=== PATIENT | male | born 1940 | race Caucasian/White ===

== ENCOUNTER → 2016-04-18 | Outpatient (CLI) | payer MEDICARE, OTHER | LOC: GMAM 16:59 | PROVIDERS: ATTEND Family Medicine | DX: R94.6 Abnormal results of thyroid function studies (principal); D75.81 Myelofibrosis ==

== ENCOUNTER → 2016-04-30 | Outpatient (CLI) | payer MEDICARE, OTHER | LOC: GMAM 12:07 | PROVIDERS: ATTEND Family Medicine | DX: N18.2 Chronic kidney disease, stage 2 (mild) (principal) ==

== ENCOUNTER → 2016-05-21 | Outpatient (CLI) | payer MEDICARE, OTHER | END | disposition home or self-care (01) | LOC: GMAM 10:43 | PROVIDERS: ATTEND Family Medicine | DX: R94.6 Abnormal results of thyroid function studies (principal) ==

== ENCOUNTER → 2016-06-26 | Outpatient (CLI) | payer MEDICARE, OTHER | END | disposition home or self-care (01) | LOC: GMAM 10:39 | PROVIDERS: ATTEND Family Medicine | DX: E03.9 Hypothyroidism, unspecified (principal); N18.2 Chronic kidney disease, stage 2 (mild); Z12.5 Encounter for screening for malignant neoplasm of prostate | CPT/HCPCS: 83735; 84100; 84439; 84443; G0103 ==

== ENCOUNTER → 2016-09-28 | Outpatient (CLI) | payer MEDICARE, OTHER | END | disposition home or self-care (01) | LOC: GMAM 11:22 | PROVIDERS: ATTEND Family Medicine | DX: N18.2 Chronic kidney disease, stage 2 (mild) (principal) ==

== ENCOUNTER → 2017-02-01 | Outpatient (CLI) | payer MEDICARE, OTHER | END | disposition home or self-care (01) | LOC: GMAM 10:23 | PROVIDERS: ATTEND Family Medicine | DX: E03.9 Hypothyroidism, unspecified (principal); Z12.5 Encounter for screening for malignant neoplasm of prostate | CPT/HCPCS: 84439; 84443; G0103 ==

== ENCOUNTER → 2017-02-05 | Outpatient (CLI) | payer MEDICARE, OTHER | LOC: GMAM 16:37 | PROVIDERS: ATTEND Family Medicine | DX: M25.50 Pain in unspecified joint (principal) ==

== ENCOUNTER → 2017-05-06 | Outpatient (CLI) | payer MEDICARE, OTHER | LOC: GMAM 10:42 | PROVIDERS: ATTEND Family Medicine | DX: E03.9 Hypothyroidism, unspecified (principal); E11.9 Type 2 diabetes mellitus without complications; R97.20 Elevated prostate specific antigen [PSA]; M25.571 Pain in right ankle and joints of right foot; M25.572 Pain in left ankle and joints of left foot ==

== ENCOUNTER → 2017-05-22 | Outpatient (CLI) | payer MEDICARE, OTHER | LOC: LAB.O 14:07 | PROVIDERS: ATTEND Family Medicine | DX: D68.69 Other thrombophilia (principal) ==

== ENCOUNTER → 2017-07-23 | Outpatient (CLI) | payer MEDICARE, OTHER | LOC: LAB.O 06-06 09:57 | PROVIDERS: ATTEND Internal Medicine Nephrology | DX: N18.4 Chronic kidney disease, stage 4 (severe) (principal) ==

== ENCOUNTER → 2017-09-30 | Outpatient (CLI) | payer MEDICARE, OTHER | LOC: GMAM 11:38 | PROVIDERS: ATTEND Family Medicine | DX: R97.20 Elevated prostate specific antigen [PSA] (principal); E03.9 Hypothyroidism, unspecified; M10.9 Gout, unspecified ==

== ENCOUNTER → 2018-01-29 | Outpatient (CLI) | payer MEDICARE, OTHER | LOC: GMAM 13:36 | PROVIDERS: ATTEND Family Medicine | DX: E03.9 Hypothyroidism, unspecified (principal); M10.9 Gout, unspecified ==

== ENCOUNTER → 2018-05-21 | Outpatient (CLI) | payer MEDICARE, OTHER | LOC: GMAM 11:20 | PROVIDERS: ATTEND Family Medicine | DX: E03.9 Hypothyroidism, unspecified (principal); M10.9 Gout, unspecified ==

== ENCOUNTER → 2018-06-26 | Outpatient (CLI) | payer MEDICARE, OTHER | LOC: GMAM 14:25 | PROVIDERS: ATTEND Family Medicine | DX: M25.529 Pain in unspecified elbow (principal) ==

== ENCOUNTER → 2018-06-30 | Outpatient (CLI) | payer MEDICARE, OTHER | LOC: GMAM 10:43 | PROVIDERS: ATTEND Family Medicine | DX: L03.119 Cellulitis of unspecified part of limb (principal) ==

== ENCOUNTER → 2018-12-24 | Outpatient (CLI) | payer MEDICARE, OTHER | LOC: GMAM 08:29 | PROVIDERS: ATTEND Family Medicine | DX: E03.9 Hypothyroidism, unspecified (principal); E11.9 Type 2 diabetes mellitus without complications; I10 Essential (primary) hypertension; E87.5 Hyperkalemia; M10.9 Gout, unspecified; Z12.5 Encounter for screening for malignant neoplasm of prostate | CPT/HCPCS: 83970; 84439; 84443; 84550; G0103 ==

== ENCOUNTER 2019-08-22 00:51 | Emergency (ER) | payer MEDICARE, OTHER ==
[2019-08-22] MEDS ORDERED: TRANEXAMIC ACID 1,000 MG/10 ML VIAL ONE (01:09)
--- NOTE | 2019-08-22 01:18 | ED.PDOC ---
History of Present Illness - General Time Seen by Provider: 08/22/19 01:15 Source: patient Additional Information: This an 79-year-old male patient, presents to the ER because his bleeding from the ear, patient had a left ear biopsy for skin lesion on Saturday he was doing fine he was sleeping tonight when he woke up and noticed blood on his pillow, he was concerned because he thought he was bleeding from the internal ear, but he is bleeding from the area that was biopsied by his doctor (Dr Mayorga)Mentioned that he was bleeding a lot initially but now is just oozing - History of Present Illness EENT Location: ear (L) Improving Factors: nothing Worsening Factors: nothing Associated Symptoms: denies symptoms Allergies/Adverse Reactions: Allergies NO KNOWN ALLERGY Allergy (Verified 12/18/15 21:07) Home Medications: Ambulatory Orders Aspirin [Aspirin Adult Low Dose] 81 mg PO BEDTIME 12/18/15 Dutasteride 0.5 mg PO BEDTIME 12/18/15 Folic Lrid-Ssdkshqchq-Ohavktsm [Folbic 2.5-25-2 mg] 1 tab PO BEDTIME 12/18/15 Furosemide [Lasix] 20 mg PO DAILY PRN 12/18/15 Talmage-3 Fatty Acids [Lovaza] 1,000 mg PO BID 12/18/15 amLODIPine BESYLATE [Norvasc] 10 mg PO DAILY 12/18/15 Calcium Carbonate-Vitamin D W/ [Calcium 1200 9906-8407 mg-Unit] 1,200 mg PO BEDTIME 01/05/16 Non-Formulary Medication 1 ea PO BID 01/11/16 Lisinopril [Prinivil] 20 mg PO BID 03/29/16 Metoprolol Succinate ER 50 mg PO BID 03/29/16 Potassium Chloride [Micro-K] 8 meq PO DAILY PRN 03/29/16 Spironolactone 25 mg PO BEDTIME 03/29/16 Tamsulosin [Flomax] 0.4 mg PO BEDTIME 03/29/16 metOLazone [Zaroxolyn] 2.5 mg PO DAILY #3 tab 03/30/16 Review of Systems - Review of Systems Constitutional: States: no symptoms reported EENTM: States: no symptoms reported Respiratory: States: no symptoms reported Cardiology: States: no symptoms reported Gastrointestinal/Abdominal: States: no symptoms reported Genitourinary: States: no symptoms reported Musculoskeletal: States: no symptoms reported Skin: States: no symptoms reported Neurological: States: no symptoms reported Endocrine: States: no symptoms reported Hematologic/Lymphatic: States: no symptoms reported Past Medical History (General) - Patient Medical History Hx Seizures: No Hx Stroke: No Hx Dementia: No Hx Asthma: No Hx of COPD: No Hx Cardiac Disorders: No Hx Congestive Heart Failure: No Hx Pacemaker: No Hx Hypertension: No Hx Thyroid Disease: No Hx Diabetes: No Hx Gastroesophageal Reflux: No Hx Renal Disease: No Hx Cancer: No Hx of HIV: No Hx Hepatitis C: No Hx MRSA: No MRSA Source:: Wound - Vaccination History Hx Tetanus, Diphtheria Vaccination: Yes Hx Influenza Vaccination: No Hx Pneumococcal Vaccination: No - Social History Hx Tobacco Use: Yes Hx Chewing Tobacco Use: No Hx Alcohol Use: No Hx Substance Use: No Hx Substance Use Treatment: No Hx Depression: No Hx Physical Abuse: No Hx Emotional Abuse: No Hx Suspected Abuse: No Family Medical History - Family History Mother Family History: Unknown Living Status: Hx Family Asthma: No Hx Family Congestive Heart Failure: No Hx Family Hypertension: No Hx Family Stroke: No Hx Cardiac Disease: No Hx Family Diabetes: No Hx Family Cancer: Yes Physical Exam - Physical Exam General Appearance: Alert, Well Developed, Well Groomed, Well Hydrated, Well Nourished Eye Exam: bilateral normal Ear Exam: left ear: other - Patient area that was bleeding is seenin front of theconcha on the left ear this is the area of the patient had a biopsy, Nasal Exam: normal inspection Throat Exam: normal mouth inspection, pharynx normal Neck: non-tender Cardiovascular/Respiratory: regular rate, rhythm, no M/R/G, normal peripheral pulses, no JVD, no respiratory distress Abdominal Exam: non-tender Neurologic: biological technical officer II-XII nml as tested, no motor/sensory deficits, alert, normal mood/affect, oriented x 3 Skin Exam: normal color Progress - Progress Progress: 08/22/19 01:21 Patient was bleeding from the skin area that he had a biopsy for a lesion, this biopsy was done on Saturday, patient went to bed woke up and noticed some blood, when In the ER he was oozing from the area that he had a biopsy done by Dr. Mayorga, because this area is very difficult to suture, since he was a biopsy and epinephrine would not be amenable to use benefit because of vasoconstriction, I decided to wear a gauze with TXA or transxaminic acid, put a 4 x 4 on top of the area that is bleeding and rapid tied with a [place] band This appeared to stop the bleeding The patient to keep the dressing on until he can be able to see Dr. Mayorga Departure - Departure Clinical Impression: S/P skin biopsy Disposition: Discharge to Home or Self Care Condition: Fair Instructions: Skin Biopsy Diet: resume usual diet Referrals: Aldo Mayorga MD [Primary Care Provider] - 1-2 Weeks Home Medications: Ambulatory Orders Aspirin [Aspirin Adult Low Dose] 81 mg PO BEDTIME 12/18/15 Dutasteride 0.5 mg PO BEDTIME 12/18/15 Folic Bsli-Wfttljarfg-Howdiobo [Folbic 2.5-25-2 mg] 1 tab PO BEDTIME 12/18/15 Furosemide [Lasix] 20 mg PO DAILY PRN 12/18/15 Talmage-3 Fatty Acids [Lovaza] 1,000 mg PO BID 12/18/15 amLODIPine BESYLATE [Norvasc] 10 mg PO DAILY 12/18/15 Calcium Carbonate-Vitamin D W/ [Calcium 1200 2360-3388 mg-Unit] 1,200 mg PO BEDTIME 01/05/16 Non-Formulary Medication 1 ea PO BID 01/11/16 Lisinopril [Prinivil] 20 mg PO BID 03/29/16 Metoprolol Succinate ER 50 mg PO BID 03/29/16 Potassium Chloride [Micro-K] 8 meq PO DAILY PRN 03/29/16 Spironolactone 25 mg PO BEDTIME 03/29/16 Tamsulosin [Flomax] 0.4 mg PO BEDTIME 03/29/16 metOLazone [Zaroxolyn] 2.5 mg PO DAILY #3 tab 03/30/16 Additional Instructions: Follow-up up with Dr. Mayorga as soon as possible
[2019-08-22 01:32] VITALS: TEMP 97.8; O2SAT 100
[2019-08-22 01:48] VITALS: BP 158/86
[2019-08-22] MEDS: TRANEXAMIC ACID 1,000 MG/10 ML VIAL IV ONE (01:54)
== END 2019-08-22 01:32 | disposition home or self-care (01) ==
LOC: ER 00:51
DX: L76.21 Postprocedural hemorrhage of skin and subcutaneous tissue following a dermatologic procedure (principal); Y84.8 Other medical procedures as the cause of abnormal reaction of the patient, or of later complication, without mention of misadventure at the time of the procedure; Y92.9 Unspecified place or not applicable

== ENCOUNTER → 2019-09-07 | Outpatient (CLI) | payer MEDICARE, OTHER | LOC: GMAM 14:17 | PROVIDERS: ATTEND Family Medicine | DX: E03.9 Hypothyroidism, unspecified (principal); I10 Essential (primary) hypertension; M10.9 Gout, unspecified; E11.9 Type 2 diabetes mellitus without complications; E78.2 Mixed hyperlipidemia ==

== ENCOUNTER → 2020-01-27 | Outpatient (CLI) | payer MEDICARE, OTHER | LOC: GMAM 11:12 | PROVIDERS: ATTEND Family Medicine | DX: E03.9 Hypothyroidism, unspecified (principal); N40.0 Benign prostatic hyperplasia without lower urinary tract symptoms; M10.9 Gout, unspecified; E11.9 Type 2 diabetes mellitus without complications; I10 Essential (primary) hypertension ==

== ENCOUNTER → 2020-03-11 | Outpatient (CLI) | payer MEDICARE, OTHER | LOC: GMAM 13:02 | PROVIDERS: ATTEND Family Medicine | DX: K92.1 Melena (principal) ==